=== PATIENT | female | born 1960 | race Caucasian/White ===

== ENCOUNTER 2016-07-24 14:32 | Emergency (ER) | payer OTHER ==
[~2016-07-24] VITALS: Ht 167.6 cm; Wt 64.7 kg
[~2016-07-24 14:32] MED LIST: DIL2 PO; ESZO3TAB12 PO; Hydrocortisone; INSLIS SQ; LORA-303 PO; NITR-66 PO; OMEP20TA86 PO; Trazadone PO; WEL100 PO; XVIS2550 PO; domperidone PO
[2016-07-24 14:50] VITALS: BP 137/73; PULSE 77; RESP 20; O2SAT 100
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
[2016-07-24] MEDS ORDERED: HYDROmorphone 1 mg/mL Inj IVPUSH ONE ×2 (15:50→18:25)
[2016-07-24] MEDS ORDERED: 0.9% Sodium Chloride 1,000 ML IV SCH (15:50)
[2016-07-24] MEDS ORDERED: 0.9% Sodium Chloride 1,000 ML IV ONE (15:50)
[2016-07-24] MEDS ORDERED: Promethazine Inj 25 MG in Dextrose 5%-Pha MIX 50 ML IV ONE (15:50)
[2016-07-24] MEDS: Ondansetron 2 mg/mL 2 mL Inj IVPUSH PRN ×2 (16:06→17:50)
[2016-07-24] MEDS: HYDROmorphone 1 mg/mL Inj IVPUSH PRN ×2 (17:14→17:50)
[2016-07-24 17:15] VITALS: BP 139/78; PULSE 91; RESP 24; O2SAT 98
[2016-07-24] MEDS ORDERED: Pantoprazole 4 mg/mL 10 mL Inj IVPUSH ONE (17:35)
[2016-07-24 18:43] VITALS: BP 124/73; PULSE 102; RESP 18; O2SAT 94
[2016-07-24 19:04] LABS: TROPONIN T < 0.010 ug/L (0.0-0.011)
[2016-07-24 19:08] LABS: Lipase 9 U/L (13-60)
== END 2016-07-24 18:44 | disposition home or self-care (01) ==
LOC: SED 14:32
DX: E10.43 Type 1 diabetes mellitus with diabetic autonomic (poly)neuropathy (principal); K31.84 Gastroparesis; Z79.4 Long term (current) use of insulin; Z88.8 Allergy status to other drugs, medicaments and biological substances
CPT/HCPCS: 83690; 84484; 96361; 96374; 96375; 96376; 99285; J1170; J2060; J2405; J7030